=== PATIENT | female | born 1985 | race Caucasian/White ===

== ENCOUNTER → 2016-04-19 | Outpatient (CLI) | payer OTHER ==
[~2016-04-19] MED LIST: ABILIFY 10MG TA10 MG PO; FLEXERIL5 MG PO; IBU800 M1 PO; MIRENA52 MG IU; MOTRIN800 MG PO; NORINYL PO; PEPCID 20MG TAB20 MG PO; PHENERGAN 25 TA25 MG PO
== END ==
LOC: MC.RAD 09:51
DX: N63 Unspecified lump in breast (principal)

== ENCOUNTER → 2016-05-25 | Outpatient (CLI) | payer OTHER | LOC: COL.RAD 12:27 | DX: D17.1 Benign lipomatous neoplasm of skin and subcutaneous tissue of trunk (principal) ==

== ENCOUNTER → 2016-10-01 | Outpatient (CLI) | payer OTHER | LOC: MC.RAD 09:00 | DX: D17.39 Benign lipomatous neoplasm of skin and subcutaneous tissue of other sites (principal) ==

== ENCOUNTER → 2020-07-11 | Outpatient (CLI) | payer OTHER | LOC: MC.RAD 09:42 | DX: D17.39 Benign lipomatous neoplasm of skin and subcutaneous tissue of other sites (principal); N63.22 Unspecified lump in the left breast, upper inner quadrant ==

== ENCOUNTER 2022-08-03 11:00 | Emergency (ER) | payer OTHER ==
[~2022-08-03] VITALS: Ht 167.6 cm; Wt 159.1 kg
[2022-08-03 12:59] LABS: BASO % 0.4 % (0.0-2.0); EOS # 0.2 K/mm3 (0.0-0.7); EOS % 2.7 % (0.0-4.0); GRAN # 4.9 K/mm3 (1.4-6.5); GRAN % 71.8 % (42.2-75.2); HEMOGLOBIN 11.9 g/dl (12.5-16.0); LYMPH # 1.2 K/mm3 (1.2-3.4); LYMPH % 18.3 % (20.0-51.0); MEAN CELL VOLUME 79 fl (80.0-100.0); MEAN CORPUSCULAR HEMOGLOBIN 26 pg (27-31); MEAN CORPUSCULAR HGB CONC 33 g/dl (33.0-37.0); MONO # 0.4 K/mm3 (0.1-0.6); MONO % 6.1 % (1.7-9.3); PLATELET COUNT 276 K/mm3 (130-400); RED BLOOD COUNT 4.57 M/mm3 (4.10-5.30); REDCELL DISTRIBUTION WIDTH-CV 14.2 % (11.5-14.5)
[2022-08-03 13:02] LABS: HEMATOCRIT 36.1 % (37.0-47.0)
[2022-08-03 13:15] LABS: ALANINE AMINOTRANSFERASE 24 U/L (0-55); ALBUMIN 3.7 gm/dL (3.5-5.0); ALKALINE PHOSPHATASE 71 U/L (40-150); ANION GAP 11 mmol/L (7-16); AST,SGOT 17 U/L (5-34); BILIRUBIN,TOTAL 0.3 mg/dL (0.2-1.2); BLOOD UREA NITROGEN 13 mg/dL (7-19); CALCIUM 9.5 mg/dL (8.4-10.2); CARBON DIOXIDE 23 mmol/L (22-29); CHLORIDE 105 mmol/L (98-107); CREATININE, serum 0.81 mg/dL (0.57-1.11); GLUCOSE 92 mg/dL (70-99); POTASSIUM 4.4 mmol/L (3.5-4.5); SODIUM 139 mmol/L (136-145); TOTAL PROTEIN 7.2 gm/dL (6.2-8.1)
[2022-08-03 13:25] LABS: TROPONIN-I < 0.010 ng/mL (0.00-0.033)
[2022-08-03 14:55] VITALS: BP 130/80; PULSE 74; TEMP 98.2
== END 2022-08-03 14:03 | disposition home or self-care (01) ==
LOC: COL.ER 11:00
PROVIDERS: Emergency Medicine
DX: M54.2 Cervicalgia (principal); R07.89 Other chest pain; M19.90 Unspecified osteoarthritis, unspecified site; D64.9 Anemia, unspecified; Z79.1 Long term (current) use of non-steroidal anti-inflammatories (NSAID)

== ENCOUNTER → 2024-01-22 | Outpatient (CLI) | payer OTHER ==
[~2024-01-22] MED LIST changes: +MOTRIN 800800 MG/TAB PO; +ULTRAM 50MG TAB50 MG PO; +ZOFRAN 4MG T4 MG/TAB PO
== END ==
LOC: MC.RAD 10:32
DX: R92.8 Other abnormal and inconclusive findings on diagnostic imaging of breast (principal)